=== PATIENT | male | born 1980 | race Caucasian/White ===

== ENCOUNTER 2023-10-15 14:43 | Emergency (ER) | payer SELFPAY ==
--- NOTE | ~2023-10-15 | XR_ITS ---
XR chest 1V portable DATE: 10/15/2023 15:10 INDICATION: Sudden onset of left-sided chest pain TECHNIQUE: Portable upright AP chest on 10/15/2023 at 1505 hours COMPARISON: None FINDINGS: Normal heart size. No hilar or mediastinal enlargement. No pulmonary infiltrate or consolid ation, pleural effusion or pulmonary vascular congestion or pneumothorax is detected. IMPRESSION: No active cardiopulmonary disease Reviewed, dictated and finalized at location B.
[2023-10-15 14:50] VITALS: BP 116/89; PULSE 89; RESP 20; O2SAT 99
--- NOTE | 2023-10-15 14:51 | ECG_ITS ---
Measurements Intervals [place] Rate: 86 P: 42 MI: 144 QRS: 60 QRSD: 101 T: 65 QT: 341 QTc: 409 Interpretive Statements SINUS RHYTHM DELAYED PRECORDIAL R/S TRANSITION BASELINE ARTIFACT- I, II, III, AVR, AVL, AVF, V1-V3 BORDERLINE ECG NO PREVIOUS ECG AVAILABLE FOR COMPARISON Electronically Signed On 10-15-2023 15:01:25 CDT by Suraj Morgan D.O.
[2023-10-15 14:56] VITALS: BP 116/89; PULSE 81; RESP 17; O2SAT 98
--- NOTE | 2023-10-15 15:14 | ED.CHESTPAIN ---
HPI - Chest Pain General Chief Complaint: Chest Pain Stated Complaint: cp Time Seen by Provider: 10/15/23 15:04 History of Present Illness HPI narrative: Pt presents with sharp left sided Cp starting about 100 this morning. Pt says it is not positional or worse with deep breath. Pt says he had some SOB earlier and tingling in his fingers which has resolved. Pt has no medical problems and does not smoke or have a FH of CAD. Related Data Allergies Allergy/AdvReac Type Severity Reaction Status Date / Time No Known Allergies Allergy Verified 10/15/23 14:59 Review of Systems Review of Systems: All systems reviewed & are unremarkable except as noted in HPI and below Exam Const: General: healthy appearing and no acute distress Nutritional Appearance: well nourished Orientation/consciousness: patient oriented x3 Limitations: no limitations Chest: Chest palpation & inspection: normal inspection of the chest and no tenderness Resp: Effort & Inspection: normal respiratory effort Auscultation: clear to auscultation bilaterally Cardio: Rate: regular rate Rhythm: regular rhythm GI: GI Palp: Yes Soft to palpation Auscultation: normal bowel sounds Skin: General skin exam: normal color Rashes: no rashes Wounds: no wounds Neuro: General: patient oriented x3, moves all extremities, no meningeal signs, no focal motor deficits and CN's II-XI intact bilaterally Cranial nerves: Yes Nystagmus not present Speech: normal speech Extrem: General: normal to inspection and no clubbing, cyanosis or edema Psych: Mental Status: mental status grossly normal Affect: Anxious affect present Attitude: cooperative Course Vital Signs Vital signs: Vital Signs Pulse Rate 89 10/15/23 14:50 Respiratory Rate 20 10/15/23 14:50 Blood Pressure 116/89 10/15/23 14:50 Pulse Oximetry 99 10/15/23 14:50 Oxygen Delivery Room Air 10/15/23 14:50 Pulse Rate 83 10/15/23 16:54 Respiratory Rate 14 10/15/23 16:54 Blood Pressure 98/72 L 10/15/23 16:54 Pulse Oximetry 98 10/15/23 16:54 Oxygen Delivery Room Air 10/15/23 14:50 MDM - Chest Pain MDM Narrative Medical decision making narrative: Pt presents with left sided sharp CP for about 5 hrs steady. Will do cardiac work up and cxr no stemi on ekg will give toradol for pain and d dime. Pt had asa in route. d dimer labs trop and cxr neg. pt better after toradol ok to go home Differential Diagnosis Differential diagnosis: Likely pneumothorax, unstable angina pectoris, atypical chest pain, costochondritis, biliary colic and other (pluerisy PE) Lab Data 10/15/23 15:12 10/15/23 15:12 Labs: Lab Results 10/15/23 Range/Units 15:12 WBC 7.4 (4.5-10.0) K/mm3 RBC 4.76 (4.6-6.20) M/mm3 Hgb 14.7 (14.0-18.0) g/dL Hct 44.5 (42.0-52.0) % MCV 93.5 (80-100) fl MCH 30.9 (26-34) pg MCHC 33.0 (32-36) g/dl RDW 12.5 (11.5-14.5) % Plt Count 263 (150-375) k/mm3 MPV 9.7 (7.4-10.4) fl Immature Gran % (Auto) 0.5 (0-0.5) % Neut % (Auto) 60.1 (45.5-73.1) % Lymph % (Auto) 26.8 (18.3-44.2) % Baker % (Auto) 9.8 H (2.6-8.5) % Eos % (Auto) 2.4 (0-4.4) % Baso % (Auto) 0.4 (0.2-1.2) % Lymph # (Auto) 1.97 (0.9-3.2) K/mm3 Baker # (Auto) 0.7 H (0.1-0.6) K/mm3 Eos # (Auto) 0.2 (0-0.3) K/mm3 Baso # (Auto) 0.0 (0.0-0.1) K/mm3 Abs Immat Gran (auto) 0.04 H (0.00-0.031) K/mm3 Absolute Neuts (auto) 4.4 (1.3-6.7) K/mm3 Absolute Nucleated RBC 0.000 (0.0-0.012) K/mm3 Nucleated RBC % 0.0 (0.0-0.2) % PT 12.2 (11.1-14.7) Seconds INR 0.9 APTT 26.4 (22.3-36.8) Seconds D-Dimer < 0.27 (<0.48) ug/mL Sodium 139 (137-145) mmol/L Potassium 3.8 (3.4-5.0) mmol/L Chloride 107 (98-107) mmol/L Carbon Dioxide 26 (22-30) mmol/L Anion Gap 6 L (8-16) mmol/L BUN 10 (9-20) mg/dL Creatinine 0.80 (0.7-1.3) mg/dL Estim Creat Clear Calc 104 ml/min Estimated GFR > 60 (59 - ) Glucose 99 (
[2023-10-15] MEDS: KETOROLAC 15 MG/ML VIAL (*BKC) IV PUSH (15:18)
[2023-10-15 15:21] LABS: Basophils Percent Auto 0.4 % (0.2-1.2); Eosinophils Absolute Auto 0.2 K/mm3 (0-0.3); Eosinophils Percent Auto 2.4 % (0-4.4); Hematocrit 44.5 % (42.0-52.0); Hemoglobin 14.7 g/dL (14.0-18.0); Immature Granulocyte Absolute 0.04 K/mm3 (0.00-0.031); Immature Granulocyte Percent A 0.5 % (0-0.5); Lymphocytes Absolute Auto 1.97 K/mm3 (0.9-3.2); Lymphocytes Percent Auto 26.8 % (18.3-44.2); Mean Corpuscular Hemoglobin 30.9 pg (26-34); Mean Corpuscular Volume 93.5 fl (80-100); Mean Platelet Volume 9.7 fl (7.4-10.4); Monocytes Absolute Auto 0.7 K/mm3 (0.1-0.6); Monocytes Percent Auto 9.8 % (2.6-8.5); Neutrophils Absolute Auto 4.4 K/mm3 (1.3-6.7); Neutrophils Percent Auto 60.1 % (45.5-73.1); Platelet Count Result 263 k/mm3 (150-375); Red Blood Count 4.76 M/mm3 (4.6-6.20); Red Cell Distribution Width 12.5 % (11.5-14.5); White Blood Count 7.4 K/mm3 (4.5-10.0)
[2023-10-15 15:29] LABS: Alanine Aminotransferase 40 U/L (6-50); Albumin Level 4.3 g/dL (3.5-5.1); Alkaline Phosphatase 74 U/L (38-126); Anion Gap 6 mmol/L (8-16); Aspartate Amino Transferase 29 U/L (17-59); Bilirubin,Total 0.3 mg/dL (0.2-1.3); Blood Urea Nitrogen 10 mg/dL (9-20); Calcium 9.6 mg/dL (8.4-10.2); Carbon Dioxide 26 mmol/L (22-30); Chloride 107 mmol/L (98-107); Estimated CRCL calculation 104 ml/min; Estimated Glomerular Filt Rate > 60; Glucose 99 mg/dL (65-110); Lipase 125 U/L (23-300); Potassium 3.8 mmol/L (3.4-5.0); Sodium 139 mmol/L (137-145)
[2023-10-15 15:40] LABS: INR 0.9; Prothrombin Time 12.2 Seconds (11.1-14.7)
[2023-10-15 15:41] LABS: Partial Thromboplastin Time 26.4 Seconds (22.3-36.8); Troponin I < 0.012 ng/mL (0.000-0.034)
[2023-10-15 15:46] LABS: D Dimer < 0.27 ug/mL (<0.48)
[2023-10-15 16:09] VITALS: BP 103/73; BP 124/84; PULSE 107; PULSE 73; PULSE 77; RESP 14; O2SAT 100; O2SAT 99
[2023-10-15 16:54] VITALS: BP 98/72; PULSE 83; RESP 14; O2SAT 98
== END 2023-10-15 17:10 | disposition home or self-care (01) ==
PROVIDERS: Emergency Provider Emergency Medicine; Referring Provider Emergency Medicine
DX: R07.89 Other chest pain (principal); R94.31 Abnormal electrocardiogram [ECG] [EKG]
CPT/HCPCS: 36415; 71045; 80053; 83690; 84484; 85025; 85380; 85610; 85730; 93005; 96374; 99284; J1885

== ENCOUNTER 2024-02-25 17:59 | Emergency (ER) | payer SELFPAY ==
--- NOTE | ~2024-02-25 | XR_ITS ---
EXAMINATION: XR chest 1V DATE: 02/25/2024 18:27 INDICATION: Weakness and shortness of breath TECHNIQUE: AP view of the chest was obtained COMPARISON: Chest radiograph dated 10/15/2023 FINDINGS: The lungs are clear with no focal airspace opacities, pulmonary edema, pleural effusion or pneumothor ax. The cardiomediastinal silhouette is normal. Visualized bones and soft tissues are unremarkable. IMPRESSION: 1. No acute cardiopulmonary disease. Reviewed, dictated and finalized at location A.
--- NOTE | 2024-02-25 18:03 | ECG_ITS ---
Test Date: 2024-02-25 18:11:16 Measurements Intervals [place] Rate: 82 P: 50 IA: 158 QRS: 26 QRSD: 102 T: 38 QT: 358 QTc: 419 Interpretive Statements SINUS RHYTHM BASELINE ARTIFACT- I, II, III, AVR, AVL, AVF, V1-V6 NORMAL ECG No previous ECG available for comparison Electronically Signed On 02-25-2024 20:28:16 CDT by Suraj Morgan D.O.
[2024-02-25 18:09] VITALS: BP 131/75; PULSE 79; RESP 16; TEMP 37.2; O2SAT 100
[2024-02-25 18:25] LABS: Basophils Absolute Auto 0.1 K/mm3 (0.0-0.1); Basophils Percent Auto 0.6 % (0.2-1.2); Eosinophils Absolute Auto 0.1 K/mm3 (0-0.3); Eosinophils Percent Auto 1.3 % (0-4.4); Immature Granulocyte Absolute 0.05 K/mm3 (0.00-0.031); Immature Granulocyte Percent A 0.6 % (0-0.5); Lymphocytes Absolute Auto 2.66 K/mm3 (0.9-3.2); Lymphocytes Percent Auto 30.2 % (18.3-44.2); Mean Corpuscular HGB Conc 34.1 g/dl (32-36); Mean Corpuscular Hemoglobin 31.5 pg (26-34); Mean Corpuscular Volume 92.1 fl (80-100); Mean Platelet Volume 9.8 fl (7.4-10.4); Monocytes Absolute Auto 0.7 K/mm3 (0.1-0.6); Monocytes Percent Auto 8.3 % (2.6-8.5); Neutrophils Absolute Auto 5.2 K/mm3 (1.3-6.7); Platelet Count Result 242 k/mm3 (150-375); Red Blood Count 4.45 M/mm3 (4.6-6.20); Red Cell Distribution Width 12.5 % (11.5-14.5); White Blood Count 8.8 K/mm3 (4.5-10.0)
[2024-02-25 18:34] LABS: Creatine Kinase 75 U/L (55-170)
[2024-02-25 18:36] LABS: Alanine Aminotransferase 22 U/L (6-50); Albumin Level 4.1 g/dL (3.5-5.1); Alkaline Phosphatase 68 U/L (38-126); Anion Gap 8 mmol/L (4-12); Aspartate Amino Transferase 21 U/L (17-59); Bilirubin,Total 0.6 mg/dL (0.2-1.3); Blood Urea Nitrogen 18 mg/dL (9-20); Carbon Dioxide 25 mmol/L (22-30); Chloride 105 mmol/L (98-107); Estimated CRCL calculation 87 ml/min; Estimated Glomerular Filt Rate > 60; Glucose 99 mg/dL (65-110); Potassium 3.6 mmol/L (3.4-5.0); Sodium 138 mmol/L (137-145)
[2024-02-25] MEDS: SODIUM CHLORIDE 0.9% IV 1,000 ML 999 ML IV CONT ×5 (18:36→19:30)
[2024-02-25 18:39] LABS: Add Urine Microscopic? NO; Appearance Urine Clear (Clear); Bilirubin Urine Negative (Negative); Blood Urine Negative (Negative); Color Urine Yellow (Yellow); Glucose Urine UA Negative (Negative); Ketones Urine Negative (Negative); Leukocyte Esterase Ur Negative LEU/UL (Negative); Nitrate Urine Negative (Negative); Protein Urine Negative (Negative); Specific Grav Ur 1.009 (1.001-1.035); Urobilinogen Urine 0.2 mg/dL (<2.0)
[2024-02-25 18:47] LABS: Troponin I < 0.012 ng/mL (0.000-0.034)
[2024-02-25 18:49] LABS: Glucose Point of Care 92 mg/dl (65-105)
[2024-02-25 18:52] VITALS: TEMP 36.7
--- NOTE | 2024-02-25 19:13 | ED.GENADULT ---
HPI - General Adult General Chief complaint: Weakness Stated complaint: overheated Time Seen by Provider: 02/25/24 18:06 History of Present Illness HPI narrative: This is a 43-year-old male presenting to ED for heat exhaustion. 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 He took a break and improved. However he went back out on the line and his symptoms recurred. His tabulating supervisor told him to get out of the heat and he started drinking some fluids. EMS was called while the patient originally felt well he then started to have trouble breathing, or globus sensation and cramping in his hands. He then decided come to the ED. At this time the is feeling better although he still feels weak and shaky. He denies fevers chills chest pain difficulty breathing abdominal pain nausea vomiting or diarrhea. No itching or swelling of his lips tongue is or difficulty swallowing his secretions. Related Data Allergies Allergy/AdvReac Type Severity Reaction Status Date / Time No Known Allergies Allergy Verified 02/25/24 18:13 Exam Narrative: APPEARANCE: No apparent distress. Head: atraumatic. No swelling of the lips tongue or uvula EYES: EOMI, NOSE: Atraumatic NECK: Trachea midline RESPIRATORY: No increased rate of breathing clear to auscultation CARDIOVASCULAR: RRR, no peripheral edema ABDOMINAL: Non-distended soft nontender MUSCULOSKELETAl: No obvious deformities NEURO: Alert. Moving 4/4 extremities SKIN:: Warm, dry. Normal color PSYCHIATRIC: Normal affect Course Vital Signs Vital signs: Vital Signs Temperature 99.0 F 02/25/24 18:09 Pulse Rate 79 02/25/24 18:09 Respiratory Rate 16 02/25/24 18:09 Blood Pressure 131/75 02/25/24 18:09 Pulse Oximetry 100 02/25/24 18:09 Oxygen Delivery Room Air 02/25/24 18:09 Temperature 98.1 F 02/25/24 18:52 Pulse Rate 79 02/25/24 18:09 Respiratory Rate 16 02/25/24 18:09 Blood Pressure 131/75 02/25/24 18:09 Pulse Oximetry 100 02/25/24 18:09 Oxygen Delivery Room Air 02/25/24 18:09 Medical Decision Making MDM Narrative Medical decision making narrative: -Course: The 43-year-old presenting to the ED with possible heat exhaustion. Patient given fluid resuscitation in the ED. workup including laboratory studies chest x-ray EKG and troponins were unremarkable. Patient was monitored for several hours and is much improved. He is requesting discharge cause he would like to go eat dinner. Patient discharged with return precautions. -DDX includes but is not limited to: Heat exhaustion, panic disorder, dehydration -Independent interpretation of studies: Labs reviewed within normal limits. Chest x-ray normal. Independent EKG interpretation: Rhythm [sinus], Rate [82], [place] -[normal], MI -[normal], QRS [narrow], QTC [normal], T waves -[negative for concerning inversions], ST Segments - [Negative for concerning elevations] Final interpretations: [Normal Sinus Rhythm] -Interventions: 3 L normal saline, Tylenol -Shared decision making / Disposition: Discharged Vital Signs Vital Signs: Vital Signs Temperature 99.0 F 02/25/24 18:09 Pulse Rate 79 02/25/24 18:09 Respiratory Rate 16 02/25/24 18:09 Blood Pressure 131/75 02/25/24 18:09 Pulse Oximetry 100 02/25/24 18:09 Oxygen Delivery Room Air 02/25/24 18:09 Temperature 98.1 F 02/25/24 18:52 Pulse Rate 79 02/25/24 18:09 Respiratory Rate 16 02/25/24 18:09 Blood Pressure 131/75 02/25/24 18:09 Pulse Oximetry 100 02/25/24 18:09 Oxygen Delivery Room Air 02/25/24 18:09 Lab Data 02/25/24 18:18 02/25/24 18:18 Labs: Lab Results 02/25/24 02/25/24 02/25/24 Range/Units 18:18 18:32 18:45 WBC 8.8 (4.5-10.0) K/mm3 RBC 4.45 L (4.6-6.20) M/mm3 Hgb 14.0 (14.0-18.0) g/dL Hct 41.0 L (42.0-52.0) % MCV 92.1 (80-100) fl MCH 31.5 (26-34) pg MCHC 34.1 (32-36) g/dl RDW 12
[2024-02-25] MEDS: ACETAMINOPHEN 500 MG TABLET 1000 MG PO (19:27)
[2024-02-25 20:15] VITALS: BP 122/84; PULSE 69; RESP 13; O2SAT 100
[2024-02-25 20:18] VITALS: BP 120/79
== END 2024-02-25 20:20 | disposition home or self-care (01) ==
PROVIDERS: Student in an Organized Health Care Education/Training Program; Emergency Provider Emergency Medicine
DX: T67.5XXA Heat exhaustion, unspecified, initial encounter (principal); X30.XXXA Exposure to excessive natural heat, initial encounter
CPT/HCPCS: 36415; 71045; 80053; 81003; 82550; 82948; 83605; 84484; 85025; 93005; 96360; 96361; 99284; A9270; J7030

== ENCOUNTER 2025-03-25 15:26 | Emergency (ER) | payer OTHER, SELFPAY ==
--- NOTE | ~2025-03-25 | CT_ITS ---
EXAMINATION: CT brain wo con DATE: 03/25/2025 19:30 INDICATION: Headache TECHNIQUE: Computed tomography (CT) of the head was performed without intravenous contrast. Sagittal and coronal reconstructions were performed. The mA was adjusted according to patient size. Iterative reconstruction technique was employed. The dose-length product was 681.00 mGy-cm. COMPARISON: None FINDINGS: No acute intracranial hemorrhage, acute infarction or abnormal extra axial fluid collection. Ventricles are normal and symmetric. No mass/mass effect. The orbits, paranasal sinuses and mastoid air cells are normal. IMPRESSION: 1. Normal head CT. Reviewed, dictated and finalized at location A. IMPRESSION: 1. Normal head CT.
--- NOTE | ~2025-03-25 | CT_ITS ---
EXAMINATION: CTA chest abdomen pelvis DATE: 03/25/2025 19:31 INDICATION: Chest pain TECHNIQUE: Computed tomographic angiography (CTA) of the chest, abdomen, and pelvis was performed without and with 100 mL Omnipaque-350 intravenous contrast. Volume-rendered 3D-reconstructions of the aorta and large arteries were constructed by the technologist on a separate workstation. Automated exposure control and iterative reconstruction technique were employed. The dose-length product was 473.27 mGy-cm. COMPARISON: None FINDINGS: Chest: Mild discoid atelectasis in the basilar left lower lobe. Small calcified nodules in the lingula consistent with old granulomatous disease. No other airspace disease, pulmonary edema, pleural effusion or pneumothorax. Heart size is normal. No pericardial effusion. Mild sinus of Valsalva aneurysm measuring 4.3 x 4.1 cm. This tapers to 3.6 x 3.4 cm at the aortic annulus. The more distal thoracic aorta remains normal in caliber. No dissection. No pathologically enlarged thoracic lymphadenopathy. Bones are unremarkable. Abdomen and pelvis: Liver, gallbladder, spleen, pancreas, bilateral adrenal glands and kidneys are normal. Bowels including the appendix are normal. Bladder is normal. No free intraperitoneal gas or fluid. No pathologically enlarged abdominal or pelvic lymphadenopathy. Abdominal aorta is normal in caliber with no dissection. Mild lumbar spondylosis. IMPRESSION: 1. Mild sinus of Valsalva aneurysm measuring up to 4.3 x 4.1 cm. No other acute cardia pulmonary disease or acute intra-abdominal/pelvic process. Reviewed, dictated and finalized at location A.
--- NOTE | ~2025-03-25 | XR_ITS ---
EXAMINATION: XR chest 2V DATE: 03/25/2025 16:53 INDICATION: Chest pain TECHNIQUE: PA and lateral views of the chest were obtained. COMPARISON: Chest radiograph dated 02/25/2024 FINDINGS: The lungs are clear with no focal airspace opacities, pulmonary edema, pleural effusion or pneumothorax. The cardiomediastinal silhouette is normal. Visualized bones and soft tissues are unremarkable. IMPRESSION: 1. Normal chest radiograph. Reviewed, dictated and finalized at location A. IMPRESSION: 1. Normal chest radiograph.
[2025-03-25 15:41] VITALS: BP 114/65; PULSE 78; RESP 18; O2SAT 98
--- NOTE | 2025-03-25 15:45 | ECG_ITS ---
Test Date: 2025-03-25 15:45:04 Measurements Intervals [place] Rate: 67 P: 48 [place]: 151 QRS: 70 QRSD: 107 T: 50 QT: 365 QTc: 387 Interpretive Statements SINUS RHYTHM WITH SINUS ARRHYTHMIA BASELINE ARTIFACT- I, II, III, AVR, AVL, AVF, V1 NORMAL ECG Compared to ECG 02/25/2024 18:11:16 No significant changes Electronically Signed On 03-25-2025 15:53:31 CDT by Suraj Morgan D.O.
[2025-03-25 15:47] VITALS: TEMP 36.6
[2025-03-25 16:29] LABS: Hematocrit 40.9 % (42.0-52.0); Hemoglobin 13.8 g/dL (14.0-18.0); Immature Granulocyte Percent A 0.4 % (0-0.5); Lymphocytes Absolute Auto 1.84 K/mm3 (0.9-3.2); Mean Corpuscular HGB Conc 33.7 g/dl (32-36); Mean Corpuscular Hemoglobin 31.0 pg (26-34); Mean Corpuscular Volume 91.9 fl (80-100); Nucleated Red Blood Cells Absolute Auto 0.000 K/mm3 (0.0-0.012); Nucleated Red Blood Cells Perc 0.0 % (0.0-0.2); Platelet Count Result 255 k/mm3 (150-375); Red Blood Count 4.45 M/mm3 (4.6-6.20); White Blood Count 7.9 K/mm3 (4.5-10.0)
[2025-03-25 16:38] LABS: Alanine Aminotransferase 20 U/L (6-50); Albumin Level 4.0 g/dL (3.5-5.1); Alkaline Phosphatase 66 U/L (38-126); Anion Gap 6 mmol/L (4-12); Aspartate Amino Transferase 23 U/L (17-59); Bilirubin,Total 0.4 mg/dL (0.2-1.3); Blood Urea Nitrogen 16 mg/dL (9-20); Calcium 8.8 mg/dL (8.4-10.2); Carbon Dioxide 23 mmol/L (22-30); Chloride 108 mmol/L (98-107); Estimated CRCL calculation 71 ml/min; Estimated Glomerular Filt Rate > 60; Glucose 101 mg/dL (65-110); Lipase 178 U/L (23-300); Potassium 3.6 mmol/L (3.4-5.0); Sodium 137 mmol/L (137-145); Total Protein 6.5 g/dL (6.3-8.2)
[2025-03-25 16:45] LABS: INR 1.0; Prothrombin Time 13.0 Seconds (11.1-14.7)
[2025-03-25 16:46] LABS: Partial Thromboplastin Time 27.0 Seconds (22.3-36.8)
[2025-03-25 16:50] LABS: Troponin I < 0.012 ng/mL (0.000-0.034)
--- OUTSIDE RECORDS SUMMARY | 2025-03-25 17:39 | XMS_ITS | Encounter Summary ---
Author Organization [facility] Address 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 [employer] [place] [address] [place] [address] Gabriela Whitaker ANP [address] [place] [address] TSH, LIPID PANEL, COMPREHENSIVE METABOLIC PANEL, CBC WITH DIFFERENTIAL Social History Tobacco Use Types Packs/Day Years Used Date Smoking Tobacco: Every Day Cigarettes Smokeless Tobacco: Never Alcohol Use Standard Drinks/Week Comments Not Currently 0 (1 standard drink = 0.6 oz pur e alcohol) Sex and Gender Information Value Date Recorded Sex Assigned at Not on file Legal Sex Male 11:54 AM CDT Gender Identity Not on file Sexual Orientation Not on file documented as of this encounter Miscellaneous Notes * Result Encounter Note - Asia Coreas RN - 02/10/2025 10:29 AM CDT Spoke to pt giving this information. Pt verbalized understanding. * Result Encounter Note - Gabriela Whitaker ANP - 02/10/2025 9:07 AM CDT Contact patient regarding result. Cholesterol much improved from last check. Blood sugar slightly high. Other labs excellent. If we are PCP, FU to discuss. If has other PCP, FU there. 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
--- OUTSIDE RECORDS SUMMARY | 2025-03-25 17:39 | XMS_ITS | Clinical Summary ---
Author Organization [facility] [employer] [place] Address [address] [address] Care Team Providers Care Watch Dial Printer Name Role Phone Unavailable Primary Care Provider Unavailabl e Allergies No known active allergies Medications No known medications Active Problems Problem Noted Date Diagnosed Date Pure hypercholesterolemia 09/10/2024 Smoker 09/10/2024 Encounters Date Type Department Care Team Description 02/10/2025 Results Follow-Up [facility] [employer] [place] [address] [place] [address] Gabriela Whitaker, ANP TSH, LIPID PANEL, COMPREHENSIVE METABOLIC PANEL, CBC WITH DIFFERENTIAL 02/07/2025 1:20 PM CDT Office Visit [facility] [employer] [place] [address] [place] [address] Screening for condition (Primary Dx) from Last 3 Months Immunizations Immunization Administration Dates Next Due (ADACEL/BOOSTRIX)(10 YR UP) TDAP VACCINE, 0.5ML, IM 04/27/2024 INFLUENZA VACCINE TRIVALENT SPLIT VIRUS, (6 MOS UP), 0.5ML (PF), IM 05/05/2024 Family History Medical History Relation Name Comments Unknown Father Diabetes Maternal Grandfather Diabetes Maternal Grandmother Unknown Mother Relation Name Status Comments Brother Alive Father Unknown Maternal Grandfather Maternal Grandmother Mother (Age 32) Sister Alive Social History Tobacco Use Types Packs/Day Years Used Date Smoking Tobacco: Every Day Cigarettes Smokeless Tobacco: Never Tobacco Cessation:Ready to Q uit: Not Asked; Counseling Given: Not Answered Alcohol Use Standard Drinks/Week Comments Not Currently 0 (1 standard drink = 0.6 oz pur e alcohol) Sex and Gender Information Value Date Recorded Sex Assigned at Not on file Legal Sex Male 11:54 AM CDT Gender Identity Not on file Sexual Orientation Not on file Last Filed Vital Signs Vital Sign Reading Time Taken Comments Blood Pressure 110/70 02/07/2025 2:05 PM CDT Pulse 72 09/10/2024 1:03 PM EDGE GLUE MACHINE TENDER Temperature 36.6 C (97.8 F) 09/10/2024 1:03 PM EDGE GLUE MACHINE TENDER Respiratory Rate 18 09/10/2024 1:03 PM EDGE GLUE MACHINE TENDER Oxygen Saturation 96% 09/10/2024 1:03 PM EDGE GLUE MACHINE TENDER Inhaled Oxygen Concentration - - Weight 65.8 kg (145 lb) 02/07/2025 2:05 PM CDT Height 172.7 cm (5' 8) 02/07/2025 2:05 PM CDT Body Mass Index 22.05 02/07/2025 2:05 PM CDT Plan of Treatment Health Maintenance Due Date Last Done Comments HEPATITIS B VACCINES (1 of 3 - 19+ 3-dose series) 1999 HPV VACCINES (1 - 3-dose SCDM series) 2007 INFLUENZA VACCINE (#1) 2025 , 05/10/2019, 05/01/2018 COLORECTAL SCREENING 2025 Colorectal Cancer Screening 2025 FIT-DNA Q 3 years 2025 FIT/FOBT Q 1 year 2025 Flex Sig/CT Colonography Q 5 years 2025 DTAP/TDAP/TD VACCINES (2 - T d or Tdap) 04/27/2034 04/27/2024 Procedures Procedure Name Priority Date/Time Associated Diagnosis Comments CBC WITH DIFFERENTIAL Routine 02/07/2025 1:31 PM CDT Screening for condition COMPREHENSIVE METABOLIC PANEL Routine 02/07/2025 1:31 PM CDT Screening for condition LIPID PANEL Routine 02/07/2025 1:31 PM CDT Screening for condition TSH Routine 02/07/2025 1:31 PM CDT Screening for condition from Last 3 Months Results * CBC WITH DIFFERENTIAL (02/07/2025 1:31 PM CDT) WBC 7.0 3.8 - 10.8 Thousand/u L [facility] RBC 4.70 4.20 - 5.80 Million/uL [facility] HEMOGLOBIN 14.9 13.2 - 17.1 g/dL [facility] HEMATOCRIT 46.1 38.5 - 50.0 % [facility] MCV 98.1 80.0 - 100.0 fL [facility] MCH 31.7 27.0 - 33.0 pg [facility] MCHC 32.3 32.0 - 36.0 g/dL [facility] Comment: For adults, a slight decrease in the calculated MCHC value (in the range of 30 to 32 g/dL) is most likely not clinically significant; however, it should be interpreted with caution in correlation with other red cell parameters and the patient's clinical condition. RDW 11.9 11.0 - 15.0 % [facility] PLATELETS 264 140 - 400 Thousand/u L [facility] MPV 10.8 7.5 - 12.5 fL [facility] NEUTROPHIL ABSOLUTE 3,892 1,500 - 7,800 cells/uL [facility] LYMPHOCYTE ABSOLUTE 2,324 850 - 3,900 cells/uL [facility] MONOCYTE ABSOLUTE 658 200 - 950 cells/uL [facility] EOSINOPHIL ABSOLUTE 77 15 - 500 cells/uL [facility] BASOPHILS ABSOLUTE 49 0 - 200 cells/uL [facility] NEUTROPHIL 55.6 % [facility] LYMPHOCYTES 33.2 % [facility] MONOCYTE 9.4 % [facility] EOSINOPHILS 1.1 % [facility] BASOPHILS 0.7 % [facility] Comment: Test Performed at: [facility] [address] [address] Melody Dacosta Vo Blood 02/07/2025 1:31 PM CDT 02/08/2025 1:34 AM CDT us Gabriela Whitaker ANP HEMATOLOGY ORDERABLES Final Result [facility] [phone] [facility] [place] [address] [address] [address] * TSH (02/07/2025 1:31 PM CDT) Pathologist [facility] TSH 0.67 0.40 - 4.50 mIU/L [facility] Comment: Test Performed at: [facility] [address] [address] [address] Nisha-Gabriella Dacosta Blood 02/07/2025 1:31 PM CDT 02/08/2025 1:34 AM CDT us Gabriela Whitaker [facility] CHEMISTRY ORDERABLES Final R esult [facility] [phone] [facility] [place] [address] [address] [address] * (ABNORMAL) LIPID PANEL (02/07/2025 1:31 PM CDT) [facility] CHOLESTEROL 175 <200 mg/dL [facility] HDL 55 > OR = 40 mg/dL [facility] TRIGLYCERIDE 78 <150 mg/dL [facility] LDL CALCULATED 103(H) mg/dL (calc) [facility] Comment: Reference range: <100 Desirable range <100 mg/dL for primary prevention; <70 mg/dL for patients with CHD or diabetic patients with > or = 2 CHD risk factors. LDL-C is now calculated using the Reema calculation, which is a validated novel method providing better accuracy than the Friedewald equation in the estimation of LDL-C. Darnell HAMMOND et al. TYESHA. 2013;310(19): 5830-6500 (http://education.UCROO/faq/CEP264) CHOL/HDL RATIO 3.2 <5.0 (calc) [facility] NON-HDL CHOLESTEROL 120 <130 mg/dL (calc) [facility] Comment: For patients with diabetes plus 1 major ASCVD risk factor, treating to a non-HDL-C goal of <100 mg/dL (LDL-C of <70 mg/dL) is considered a therapeutic option. Test Performed at: [facility] [place] [address] [address] [address] [facility] Vo Blood 02/07/2025 1:31 PM CDT 02/08/2025 1:34 AM CDT Gabriela Richardson Sherman ANP CHEMISTRY ORDERABLES Final R esult [facility] [phone] [facility] [address] [place] [address] * (ABNORMAL) COMPREHENSIVE METABOLIC PANEL (02/07/2025 1:31 PM CDT) GLUCOSE 102(H) 65 - 99 mg/dL [facility] Comment: Fasting reference interval For someone without known diabetes, a glucose value between 100 and 125 mg/dL is consistent with prediabetes and should be confirmed with a follow-up test. BUN 10 7 - 25 mg/dL [facility] CREATININE 1.20 0.60 - 1.29 mg/dL [facility] GFR 76 > OR = 60 mL/min/1. 73m2 [facility] BUN/CREAT RATIO SEE NOTE: 6 - 22 (calc) [facility] Comment: Not Reported: BUN and Creatinine are within reference range. SODIUM 140 135 - 146 mmol/L [facility] POTASSIUM 3.7 3.5 - 5.3 mmol/L [facility] CHLORIDE 108 98 - 110 mmol/L [facility] CO2 22 20 - 32 mmol/L [facility] CALCIUM 9.4 8.6 - 10.3 mg/dL [facility] TOTAL PROTEIN 6.6 6.1 - 8.1 g/dL [facility] ALBUMIN 4.6 3.6 - 5.1 g/dL [facility] GLOBULIN 2.0 1.9 - 3.7 g/dL (calc) [facility] ALBUMIN/GLOBULIN RATIO 2.3 1.0 - 2.5 (calc) [facility] BILIRUBIN TOTAL 0.4 0.2 - 1.2 mg/dL [facility] ALKALINE PHOSPHATASE 69 36 - 130 U/L [facility] AST 11 10 - 40 U/L [facility] ALT 13 9 - 46 U/L [facility] Comment: Test Performed at: [facility] [address] [phone] Melody Orellana Blood 02/07/2025 1:31 PM CDT 02/08/2025 1:34 AM CDT us Gabriela Whitaker ANP CHEMISTRY ORDERABLES Final R esult [facility] [phone] [place] [address] [address] [phone] from Last 3 Months Care Teams Watch Dial Printer Relationship Specialty Start Date End Date Yesenia Palencia 02/07/25
--- NOTE | 2025-03-25 18:49 | ECG_ITS ---
Test Date: 2025-03-25 18:51:56 Measurements Intervals [place] Rate: 77 P: 65 NE: 146 QRS: 49 QRSD: 101 T: 65 QT: 373 QTc: 422 Interpretive Statements SINUS RHYTHM CANNOT R/O SEPTAL INFARCT, AGE INDETERMINATE BASELINE ARTIFACT- I, II, III, AVR, AVF, V1-V6 ABNORMAL ECG NO SIGNIFICANT CHANGE Electronically Signed On 03-25-2025 19:32:36 CDT by Suraj Morgan D.O.
[2025-03-25 18:54] VITALS: PULSE 74; RESP 18; O2SAT 100
--- NOTE | 2025-03-25 19:08 | ED_ITS ---
HPI - Chest Pain General Chief Complaint: Chest Pain Stated Complaint: cp Time Seen by Provider: 03/25/25 17:04 Source: patient Mode of arrival: EMS Limitations: no limitations History of Present Illness HPI narrative: This is a 45 year old male that presents to the ER for multiple complaints. Reports chest pain. This has been ongoing since he woke up this morning. It feels like tightness. He also reports he has had a migraine headache. Reports history of migraines, he takes several medications for this. Reports he took aspirin this afternoon. Denies vision changes, vomiting, focal numbness, weakness, shortness of breath. Related Data Allergies Allergy/AdvReac Type Severity Reaction Status Date / Time No Known Allergies Allergy Verified 02/25/24 18:13 Review of Systems 2 Review of Systems: All systems reviewed & are unremarkable except as noted in HPI and below PMFSH Past Medical History Medical History (Updated 03/25/25 @ 21:20 by Kristie Krishnan PA-C) Migraine Exam 2 Narrative: GENERAL: Well-appearing, well-nourished, and in no acute distress. HEAD: Normocephalic, atraumatic. EYES: PERRLA and EOMI. ENT: Nares clear, no rhinorrhea or epistaxis. Mucous membranes moist. Oropharynx without tonsillar hypertrophy exudate or other lesions. Bilateral TMs pearly dorman non-bulging NECK: Supple. No adenopathy or masses. CHEST: Clear to auscultation. No respiratory distress. No wheezes rales or rhonchi HEART: Regular rate and rhythm. No murmur heard. Normal peripheral pulses. ABDOMEN: Soft, nontender, nondistended, normal active bowel sounds. EXTREMITIES: Normal range of motion. No edema. SKIN: Warm, dry, no rash. NEURO: No focal deficits. Alert and oriented x3. PSYCH: Normal mood and affect Course Course Emergency Course: Patient updated on his workup, resting comfortably Vital Signs Vital signs: Vital Signs Pulse Rate 78 03/25/25 15:41 Respiratory Rate 18 03/25/25 15:41 Blood Pressure 114/65 03/25/25 15:41 Pulse Oximetry 98 03/25/25 15:41 Oxygen Delivery Room Air 03/25/25 15:41 Temperature 97.9 F 03/25/25 15:47 Pulse Rate 74 03/25/25 18:54 Respiratory Rate 18 03/25/25 18:54 Blood Pressure 114/65 03/25/25 15:41 Pulse Oximetry 100 03/25/25 18:54 Oxygen Delivery Room Air 03/25/25 15:41 MDM - Chest Pain MDM Narrative Medical decision making narrative: Patient presents to the ER for two complaints. Reporting chest pain, and a migraine headache. Patient with history of migraines, is on prophylactic medications. His vitals are stable. He is afebrile and nontoxic appearing. He is neurologically intact. Cbc without leukocytosis. Metabolic panel without concerning findings. EKG without acute ST changes, his baseline and 3 hour troponin are negative. CT brain normal. CTA chest abdomen pelvis obtained for further evaluation. This shows a mild sinus of Valsalva aneurysm. No other acute findings. Patient updated on his workup, he is resting comfortably. Instructed to have close follow-up with his PCP. He was given warnings to return to the ER Differential Diagnosis Differential diagnosis: Likely stable angina, atypical chest pain, costochondritis and chest pain Lab Data Attestation: I reviewed the patient's lab results. 03/25/25 16:22 03/25/25 16:22 Labs: Lab Results 03/25/25 03/25/25 Range/Units 16:22 18:56 WBC 7.9 (4.5-10.0) K/mm3 RBC 4.45 L (4.6-6.20) M/mm3 Hgb 13.8 L (14.0-18.0) g/dL Hct 40.9 L (42.0-52.0) % MCV 91.9 (80-100) fl MCH 31.0 (26-34) pg MCHC 33.7 (32-36) g/dl RDW 12.1 (11.5-14.5) % Plt Count 255 (150-375) k/mm3 MPV 9.6 (7.4-10.4) fl Immature Gran % (Auto) 0.4 (0-0.5) % Neut % (Auto) 65.9 (45.5-73.1) % Lymph % (Auto) 23.4 (18.3-44.2) % Fallon % (Auto) 8.5 (2.6-8.5) % Eos % (Auto) 1.3 (0-4.4) % Baso % (Auto) 0.5 (0.2-1.2) % Lymph # (Auto) 1.84 (0.9-3.2) K/mm3 Fallon # (Auto) 0.7 H (0.1-0.6) K/mm3 Eos # (Auto) 0.1 (0-0.3) K/mm3 Baso # (Auto) 0.0 (0.0-0.1) K/mm3 Abs Immat Gran (auto) 0.03 (0.00-0.031) K/mm3 Absolute Neuts (auto) 5.2 (1.3-6.7) K/mm3 Absolute Nucleated RBC 0.000 (0.0-0.012) K/mm3 Nucleated RBC % 0.0 (0.0-0.2) % PT 13.0 (11.1-14.7) Seconds INR 1.0 APTT 27.0 (22.3-36.8) Seconds Sodium 137 (137-145) mmol/L Potassium 3.6 (3.4-5.0) mmol/L Chloride 108 H (98-107) mmol/L Carbon Dioxide 23 (22-30) mmol/L Anion Gap 6 (4-12) mmol/L BUN 16 (9-20) mg/dL Creatinine 1.09 (0.7-1.3) mg/dL Estim Creat Clear Calc 71 ml/min Estimated GFR > 60 (59 - ) Glucose 101 (65-110) mg/dL Calcium 8.8 (8.4-10.2) mg/dL Total Bilirubin 0.4 (0.2-1.3) mg/dL AST 23 (17-59) U/L ALT 20 (6-50) U/L Alkaline Phosphatase 66 (38-126) U/L Troponin I < 0.012 < 0.012 (0.000-0.034) ng/mL Total Protein 6.5 (6.3-8.2) g/dL Albumin 4.0 (3.5-5.1) g/dL Lipase 178 (23-300) U/L Imaging Data Radiologist's impression: ITS Impressions Chest X-Ray 03/25/25 16:54 IMPRESSION: 1. Normal chest radiograph. Head CT 03/25/25 19:33 IMPRESSION: 1. Normal head CT. Chest/Abdomen/Pelvis CTA 03/25/25 19:57 IMPRESSION: 1. Mild sinus of Valsalva aneurysm measuring up to 4.3 x 4.1 cm. No other acute cardia pulmonary disease or acute intra-abdominal/pelvic process. ECG Data EKG #1: ECG completion date: 03/25/25 EKG Interpretation: normal rate, sinus rhythm, no ST changes and normal QT Critical Care Time Critical Care Time Critical Care Time: No Discharge Plan Discharge Clinical Impression: Aneurysm of sinus of Valsalva Chest pain Qualifiers: Chest pain type: unspecified Qualified Code(s): R07.9 - Chest pain, unspecified Migraine Qualifiers: Migraine type: unspecified Status migrainosus presence: without status migrainosus Intractability: not intractable Qualified Code(s): G43.909 - Migraine, unspecified, not intractable, without status migrainosus Patient Disposition: Home Condition: Stable Instructions: Chest Pain (ED) Additional Instructions: Return to the emergency department if you experience fever, chest pain, shortness of breath, abdominal pain with nausea and vomiting, or any other symptoms that are concerning to you. Your blood work, imaging, EKG are largely re-assuring. You have a mild aneurysm that I would like you to get a referral to vascular from your primary Follow up with your primary care doctor Patient Language: Guatemalan Prescriptions: No Action naproxen [Naprosyn] 500 mg tablet 500 mg PO BID Qty: 20 0RF cyclobenzaprine 10 mg tablet 10 mg PO TID Qty: 14 0RF Follow-up/Referrals: PHYSICIAN,[facility] AND DRAIN TECHNICIAN [Primary Care Provider, Internal Medicine] Todd Mckeon MD [Physician, Family Practice] Quality HEART score for chest pain patients History: slightly suspicious ECG: normal Age: < or = to 45 years Risk factors: no risk factors known Troponin: < or = to 1x normal limit Heart score: 0
[2025-03-25 19:24] LABS: Troponin I < 0.012 ng/mL (0.000-0.034)
[2025-03-25] MEDS: METOCLOPRAMIDE HCL INJ 10 MG/2 ML VIAL IV PUSH (19:36)
[2025-03-25] MEDS: SODIUM CHLORIDE 0.9% IV 1,000 ML 999 ML IV CONT (19:36)
[2025-03-25] MEDS: ACETAMINOPHEN 500 MG TABLET 1000 MG PO (19:36)
== END 2025-03-25 21:34 | disposition home or self-care (01) ==
PROVIDERS: Emergency Medicine; Emergency Provider Physician Assistant
DX: R07.9 Chest pain, unspecified (principal); G43.909 Migraine, unspecified, not intractable, without status migrainosus; Q25.43 Congenital aneurysm of aorta; R94.31 Abnormal electrocardiogram [ECG] [EKG]
CPT/HCPCS: 36415; 70450; 71046; 71275; 74174; 80053; 83690; 84484; 85025; 85610; 85730; 93005; 96361; 96374; 96375; 99284; A9270; J1200; J2765; J7030; Q9967